=== PATIENT | female | born 1960 | race African-American/Black ===

== ENCOUNTER 2020-09-06 14:54 | Emergency (ER) | payer OTHER ==
[2020-09-06 15:04] VITALS: BP 177/89; PULSE 77; BMI 33.3
[2020-09-06 17:11] LABS: BASO % 0.4 % (0-2.0); EOS % 0.6 % (0-4.5); HEMATOCRIT 39.9 % (32.4-45.2); LYMPH % 40.2 % (8-40); MCHC 32.5 g/dl (32.0-36.0); MEAN CELL VOLUME 92.2 fl (80-96); MEAN PLT VOLUME 8.4 fl (7.5-11.1); MONO % 10.4 % (3.8-10.2); NEUT % 48.4 % (42.8-82.8); PLATELET COUNT 266 K/MM3 (134-434); RBC 4.32 M/mm3 (3.60-5.2); RDW 14.3 % (11.6-15.6); WHITE BLOOD COUNT 4.7 K/mm3 (4.0-10.0)
[2020-09-06 17:29] LABS: POTASSIUM 4.4 mmol/L (3.5-5.1)
[2020-09-06 17:30] LABS: CALCIUM 9.7 mg/dL (8.5-10.1)
[2020-09-06 17:32] LABS: ALBUMIN 3.6 g/dl (3.4-5.0); BLOOD UREA NITROGEN 12.8 mg/dL (7-18)
[2020-09-06 17:34] LABS: CREATININE 0.9 mg/dL (0.55-1.3)
[2020-09-06 17:36] LABS: BILIRUBIN,TOTAL 0.2 mg/dL (0.2-1); TOT PROT 7.4 g/dl (6.4-8.2)
== END 2020-09-06 18:20 | disposition home or self-care (01) ==
LOC: JER 14:54 → JERFT 14:54 → JER 18:20
DX: R10.10 Upper abdominal pain, unspecified (principal); M25.539 Pain in unspecified wrist
CPT/HCPCS: 36415; 71046-TC-FY; 73110-TC-RT-FY; 80053; 85025; 99285-25